=== PATIENT | female | born 1980 | race Caucasian/White ===

== ENCOUNTER 2019-08-16 11:45 | Emergency (ER) | payer OTHER ==
[~2019-08-16] VITALS: Ht 175.3 cm; Wt 98.9 kg
[2019-08-16] MEDS ORDERED: TETRACAINE 0.5% OPHTH SOLN 4ML OD ONE (12:30)
[2019-08-16] MEDS ORDERED: FLUORESCEIN OPHTH 1 MG STRIP OD ONE (12:30)
[2019-08-16 12:55] VITALS: BP 124/74
== END 2019-08-16 13:00 | disposition home or self-care (01) ==
LOC: M ED 11:45
DX: B02.30 Zoster ocular disease, unspecified (principal); E11.9 Type 2 diabetes mellitus without complications; F17.210 Nicotine dependence, cigarettes, uncomplicated; Z88.8 Allergy status to other drugs, medicaments and biological substances

== ENCOUNTER → 2021-03-25 | Outpatient (CLI) | payer OTHER ==
--- NOTE | 2021-03-25 11:25 | REP ---
INDICATION: ANATOMY. COMPARISON: None. TECHNIQUE: Real-time sonographic evaluation of the gravid uterus performed. FINDINGS: Estimated gestational age is19 weeks 6 days, EDC 08/13/2021. Today's measurements indicate appropriate growth. Presentation: Cephalic Placenta posterior, grade 0, without evidence of placenta previa. heart rate is recorded at 132 beats per minute. Amniotic fluid is subjectively normal. Closed cervical length is measured at 4.5 cm. Biometry chart: BPD: 46 mm, 19 weeks 6 days, 50th percentile. HC: 174 mm, 20 weeks 0 days, 53rd percentile AC: 159 mm, 21 weeks 0 days, 74th percentile Femur length: 35 mm, 21 weeks 0 days, 79th percentile HC to AC ratio: 1.10, normal range 1.06-1.25. Estimated weight: 381g, over 97th percentile. anatomy: Cranium: Grossly normal Lateral Ventricles/Choroid Plexus: Grossly normal Posterior Fossa/Cerebellum: Grossly normal Nose/lips/profile: Grossly normal Four chamber heart: Grossly normal Right ventricular outflow tract: Grossly normal Left ventricular outflow tract: Grossly normal Left-sided stomach: Grossly normal Kidneys: Grossly normal Bladder: Grossly normal Cord Insertion: Grossly normal 3 vessel cord: Grossly normal Spine: Grossly normal IMPRESSION: Viable single intrauterine gestation as above. <Electronically signed by Ray Rodriguez > 03/25/21 1121
== END ==
LOC: M WHC 08:13
PROVIDERS: ATTEND Obstetrics & Gynecology
DX: O09.522 Supervision of elderly multigravida, second trimester (principal); Z3A.19 19 weeks gestation of pregnancy